=== PATIENT | female | born 1965 | race African-American/Black ===

== ENCOUNTER 2018-07-26 12:53 | Emergency (ER) | payer BC, SELFPAY | END 2018-07-26 14:04 | disposition home or self-care (01) | LOC: NAV ERS 12:53 | DX: J18.9 Pneumonia, unspecified organism (principal); E78.5 Hyperlipidemia, unspecified; I10 Essential (primary) hypertension; F32.9 Major depressive disorder, single episode, unspecified; Z79.899 Other long term (current) drug therapy; Z79.84 Long term (current) use of oral hypoglycemic drugs | CPT/HCPCS: 87081; 87430; 87804; 99283 ==